=== PATIENT | male | born 1960 | race African-American/Black ===

== ENCOUNTER 2022-04-09 15:43 | Emergency (ER) | payer MEDICAID, OTHER ==
[~2022-04-09] VITALS: Ht 182.9 cm; Wt 80.0 kg
[2022-04-09 15:51] VITALS: BP 133/113
== END 2022-04-09 18:58 | disposition left against medical advice (07) ==
LOC: ER 15:43
DX: Z53.21 Procedure and treatment not carried out due to patient leaving prior to being seen by health care provider (principal)